=== PATIENT | male | born 1995 | race African-American/Black ===

== ENCOUNTER 2021-07-17 20:22 | Emergency (ER) | payer SELFPAY ==
[~2021-07-17] VITALS: Ht 195.6 cm; Wt 108.0 kg
[2021-07-17 21:24] VITALS: BP 158/86
[2021-07-17] MEDS ORDERED: ACET-2708 MT (22:43)
== END 2021-07-17 23:33 | disposition home or self-care (01) ==
LOC: EDBD → ER 20:22
DX: M79.672 Pain in left foot (principal); M79.671 Pain in right foot; R03.0 Elevated blood-pressure reading, without diagnosis of hypertension; R46.2 Strange and inexplicable behavior
CPT/HCPCS: 99282

== ENCOUNTER 2021-07-19 08:21 | Emergency (ER) | payer SELFPAY ==
[~2021-07-19] VITALS: Ht 195.6 cm; Wt 108.0 kg
[~2021-07-19 08:21] MED LIST: ACET-2708 MT
[2021-07-19 08:25] VITALS: BP 152/84
== END 2021-07-19 12:12 | disposition home or self-care (01) ==
LOC: EDBD 08:21 → ER 08:21
DX: M25.572 Pain in left ankle and joints of left foot (principal); M25.571 Pain in right ankle and joints of right foot; H51.0 Palsy (spasm) of conjugate gaze; Z98.890 Other specified postprocedural states
CPT/HCPCS: 71045; 73610; 73630; 93005; 99284

== ENCOUNTER 2022-12-04 12:22 | Emergency (ER) | payer SELFPAY | END 2022-12-04 13:25 | disposition left against medical advice (07) | LOC: ER 12:34 | DX: Z53.21 Procedure and treatment not carried out due to patient leaving prior to being seen by health care provider (principal) | CPT/HCPCS: 99281 ==